=== PATIENT | male | born 1960 | race Caucasian/White ===

== ENCOUNTER 2019-05-20 11:48 | Inpatient (IN) | payer MEDICAID ==
[2019-05-20 13:15] LABS: ABNORMAL IP MESSAGE 1; HEMATOCRIT 21.3 % (42.0-52.0); MEAN CORPUSCULAR HEMOGLOBIN 22.6 pg (29.0-33.0); MEAN CORPUSCULAR HGB CONC 30.5 g/dl (32.0-37.0); MEAN CORPUSCULAR VOLUME 74.2 fl (82.0-101.0); MEAN PLATELET VOLUME 7.9 fl (7.4-10.4); PLATELET COUNT 374 10^3/UL (140-415); POSITIVE DIFF @See below; RED BLOOD COUNT 2.87 10^6/ul (4.70-6.10); RED CELL DISTRIBUTION WIDTH 16.1 % (11.5-14.5)
[2019-05-20] MEDS: ONDANSETRON 4 MG INJ IV (13:16)
[2019-05-20] MEDS: morphine 4 MG/ML VIAL IV (13:16)
[2019-05-20] MEDS: SOD CHLORIDE 0.9% 1,000 ML IV (13:16)
[2019-05-20] MEDS: PANTOPRAZOLE 40 MG INJ IV (13:16)
[2019-05-20 13:21] LABS: ADD MAN DIFF? YES; HEMOGLOBIN 6.5 g/dl (14.0-18.0)
[2019-05-20 13:32] LABS: ALANINE AMINOTRANSFERASE 27 IU/L (13-69); ALBUMIN 2.7 g/dl (3.3-4.9); ALBUMIN/GLOBULIN RATIO 0.36; ALKALINE PHOSPHATASE 125 IU/L (42-121); ANION GAP 5 (5-13); ASPARTATE AMINO TRANSFERASE 31 IU/L (15-46); BILIRUBIN,INDIRECT 0.6 mg/dl (0-1.1); BILIRUBIN,TOTAL 0.6 mg/dl (0.2-1.3); BLOOD UREA NITROGEN 17 mg/dl (7-20); CALCIUM 8.9 mg/dl (8.4-10.2); CARBON DIOXIDE 21 mmol/L (21-31); CHLORIDE 110 mmol/L (97-110); CREATININE 1.15 mg/dl (0.61-1.24); Estimated GFR > 60 mL/min (>60); GLUCOSE 122 mg/dl (70-220); LIPASE 29 U/L (23-300); POTASSIUM 3.7 mmol/L (3.5-5.1); SODIUM 136 mmol/L (135-144); TOTAL PROTEIN 10.1 g/dl (6.1-8.1)
[2019-05-20 13:37] LABS: PROTIME 16.3 Sec (11.9-14.9); PT RATIO 1.3
[2019-05-20 13:38] LABS: PARTIAL THROMBOPLASTIN TIME 32.8 Sec (23.0-35.0)
[2019-05-20] MEDS: SOD CHLORIDE 0.9% 0 ML IV (13:40)
[2019-05-20 13:44] LABS: ANISOCYTOSIS 1+ (0-0); BAND NEUTROPHILS #M 5.7 10^3/ul (0.0-0.6); BAND NEUTROPHILS % (M) 38 % (0-4); BURR CELLS 1+ (0-0); HYPOCHROMASIA 1+ (0-0); LYMPHOCYTES #M 0.4 10^3/ul (0.8-2.9); LYMPHOCYTES % (M) 3 % (15-51); MICROCYTOSIS 1+ (0-0); MONOCYTE #M 0.4 10^3/ul (0.3-0.9); MONOCYTES % (M) 3 % (0-11); PLATELET ESTIMATE NORMAL; POIKILOCYTOSIS 1+ (0-0); POLYCHROMASIA 3+ (0-0); SEG NEUT #M 9.3 10^3/ul (1.6-7.5); SEGMENTED NEUTROPHILS (M) % 56 % (39-77); SMUDGE%M 3 % (0-0); TARGET CELLS 1+ (0-0); TROPONIN-I < 0.012 ng/ml (0.000-0.120)
[2019-05-20] MEDS ORDERED: ACETAMINOPHEN 325 MG TAB PO (15:00)
[2019-05-20] MEDS ORDERED: ONDANSETRON 4 MG INJ IV ×3 (15:00→18:30)
[2019-05-20] MEDS: AMPICILLIN/SULB 3 GM/NS (PMX) 100 ML IVPB (15:01)
[2019-05-20 15:13] LABS: HIV 1&2 ANTIBODY REACTIVE (NEGATIVE)
[2019-05-20] MEDS ORDERED: SOD CHLORIDE 0.9% 1,000 ML IV (15:39)
[2019-05-20] MEDS ORDERED: BUPIVACAINE 0.25% (MPF) 30 ML INJ (15:44)
[2019-05-20] MEDS ORDERED: LIDOCAINE 1% (MPF) 30 ML INJ (15:45)
[2019-05-20] MEDS ORDERED: BUPIVACAINE 0.5%/EPI (SDV) 30 ML INJ (15:45)
[2019-05-20] MEDS ORDERED: VANCOMYCIN IV PER PHARMACY XX (16:00)
[2019-05-20] MEDS ORDERED: NACL 0.9% 3 ML SYG IV (16:00)
[2019-05-20] MEDS ORDERED: MIDAZOLAM 1 MG/ML 2 ML INJ (16:32)
[2019-05-20 16:48] LABS: IMMEDIATE SPIN CROSSMATCH 1 2
[2019-05-20] MEDS ORDERED: ROPIVACAINE 0.5 % 30 ML VIAL (17:28)
[2019-05-20] MEDS ORDERED: ONDANSETRON 4 MG INJ (17:52)
[2019-05-20] MEDS ORDERED: ROCURONIUM 50 MG INJ (17:54)
[2019-05-20] MEDS ORDERED: NEOSTIGMINE 3 MG/3 ML SYRINGE (17:54)
[2019-05-20] MEDS ORDERED: GLYCOPYRROLATE 0.4 MG INJ (17:54)
[2019-05-20] MEDS ORDERED: LIDOCAINE 2% (SDV) 5 ML INJ (17:54)
[2019-05-20] MEDS ORDERED: ETOMIDATE 20 MG INJ (17:54)
[2019-05-20] MEDS ORDERED: morphine 2 MG INJ IV ×2 (18:00→18:30)
[2019-05-20] MEDS ORDERED: METOCLOPRAMIDE 10 MG INJ IV (18:30)
[2019-05-20] MEDS ORDERED: MEPERIDINE 25 MG INJ IV (18:30)
[2019-05-20] MEDS ORDERED: DIPHENHYDRAMINE 50 MG INJ IV (18:30)
[2019-05-20] MEDS ORDERED: KETOROLAC 30 MG INJ IV (18:30)
[2019-05-20] MEDS ORDERED: FENTAnyl 50 MCG/ML VIAL IV (18:30)
[2019-05-20] MEDS ORDERED: SUGAMMADEX SODIUM 200 MG/2 ML VIAL IV (19:23)
[2019-05-20] MEDS: PIPER-TAZO 3.375 GM IV (PMX) 100 ML IVPB (21:38)
[2019-05-20] MEDS: D5W-0.45 NACL + KCL 20 MEQ 1,000 ML IV (21:39)
[2019-05-20] MEDS: morphine 2 MG INJ IV (23:12)
[2019-05-21] MEDS: VANCOMYCIN 1 GM in 250 ML IVPB (01:11)
[2019-05-21] MEDS: D5W-0.45 NACL + KCL 20 MEQ 1,000 ML IV ×3 (03:40→23:40)
[2019-05-21 06:03] LABS: ADD MAN DIFF? NO
[2019-05-21 06:06] LABS: HEMATOCRIT 26.2 % (42.0-52.0); HEMOGLOBIN 8.2 g/dl (14.0-18.0); MEAN CORPUSCULAR HEMOGLOBIN 23.7 pg (29.0-33.0); MEAN CORPUSCULAR HGB CONC 31.3 g/dl (32.0-37.0); MEAN CORPUSCULAR VOLUME 75.7 fl (82.0-101.0); MEAN PLATELET VOLUME 8.6 fl (7.4-10.4); PLATELET COUNT 344 10^3/UL (140-415); POSITIVE DIFF @See below; RED BLOOD COUNT 3.46 10^6/ul (4.70-6.10); RED CELL DISTRIBUTION WIDTH 16.8 % (11.5-14.5)
[2019-05-21 06:06] LABS: WHITE BLOOD COUNT 9.8 10^3/ul (4.8-10.8)
[2019-05-21 06:31] LABS: IRON 16 ug/dl (35-150)
[2019-05-21] MEDS: PANTOPRAZOLE 40 MG INJ IV (06:39)
[2019-05-21 06:40] LABS: % IRON SATURATION 9 % SAT (22-52); TOTAL IRON BINDING CAPACITY 179 ug/dl (241-421)
[2019-05-21] MEDS: PIPER-TAZO 3.375 GM IV (PMX) 100 ML IVPB ×3 (06:43→17:52)
[2019-05-21 06:46] LABS: ALANINE AMINOTRANSFERASE 19 IU/L (13-69); ALBUMIN 2.2 g/dl (3.3-4.9); ALBUMIN/GLOBULIN RATIO 0.36; ALKALINE PHOSPHATASE 108 IU/L (42-121); ANION GAP 6 (5-13); ASPARTATE AMINO TRANSFERASE 34 IU/L (15-46); BILIRUBIN,INDIRECT 0.8 mg/dl (0-1.1); BILIRUBIN,TOTAL 0.8 mg/dl (0.2-1.3); BLOOD UREA NITROGEN 14 mg/dl (7-20); CARBON DIOXIDE 18 mmol/L (21-31); CHLORIDE 113 mmol/L (97-110); CHOL/HDL RATIO 4.7 RATIO; CHOLESTEROL 52 mg/dl (100-200); CREATININE 0.91 mg/dl (0.61-1.24); Estimated GFR > 60 mL/min (>60); GLUCOSE 98 mg/dl (70-220); HDL CHOLESTEROL 11 mg/dl (30-78); LDL CHOLESTEROL,CALCULATED 31 mg/dl; MAGNESIUM 1.7 mg/dl (1.7-2.5); PHOSPHORUS 2.8 mg/dl (2.5-4.9); POTASSIUM 3.5 mmol/L (3.5-5.1); SODIUM 137 mmol/L (135-144); TOTAL PROTEIN 8.3 g/dl (6.1-8.1); TRIGLYCERIDES 52 mg/dl (0-149)
[2019-05-21] MEDS: ENOXAPARIN 40 MG/0.4 ML SYG SC (06:53)
[2019-05-21 07:03] LABS: THYROID STIMULATING HORMONE 0.727 MIU/L (0.465-4.680)
[2019-05-21 07:29] LABS: FERRITIN 68.3 ng/ml (11.1-264.0)
[2019-05-21 07:43] LABS: ANISOCYTOSIS 1+ (0-0); BAND NEUTROPHILS #M 3.1 10^3/ul (0.0-0.6); BAND NEUTROPHILS % (M) 32 % (0-4); BURR CELLS 1+ (0-0); LYMPHOCYTES #M 0.9 10^3/ul (0.8-2.9); LYMPHOCYTES % (M) 10 % (15-51); MONOCYTES % (M) 1 % (0-11); PLATELET ESTIMATE NORMAL; POIKILOCYTOSIS 1+ (0-0); POLYCHROMASIA 1+ (0-0); REACTIVE LYMPHOCYTES #M 0.2 10^3/ul (0.0-0.0); REACTIVE LYMPHOCYTES% (M) 3 % (0-0); SEG NEUT #M 5.6 10^3/ul (1.6-7.5); SEGMENTED NEUTROPHILS (M) % 54 % (39-77); SMUDGE%M 19 % (0-0); TARGET CELLS 1+ (0-0)
[2019-05-21 08:44] LABS: HEMOGLOBIN A1C 5.8 % (0-5.9)
[2019-05-21] MEDS: morphine 2 MG INJ IV ×2 (10:19→17:52)
[2019-05-21 14:42] LABS: LYMPHOCYTE - % CD4 (HELPER) 10 % (30-61); LYMPHOCYTE - %CD8 (SUPPRESSOR) 66 % (12-42); LYMPHOCYTE - ABSOLUTE 1694 cells/uL (850-3900); LYMPHOCYTE - ABSOLUTE CD4 170 cells/uL (490-1740); LYMPHOCYTE - ABSOLUTE CD8 1119 cells/uL (180-1170); LYMPHOCYTE - CD4/CD8 RATIO 0.15 (0.86-5.00)
[2019-05-21] MEDS: VANCOMYCIN 500 MG (PMX) 100 ML IVPB (16:00)
[2019-05-21] MEDS: SOD CHLORIDE 0.9% 1,000 ML IV (20:55)
[2019-05-22] MEDS ORDERED: VANCOMYCIN 750 MG (PMX) 250 ML IVPB
[2019-05-22] MEDS: PIPER-TAZO 3.375 GM IV (PMX) 100 ML IVPB ×5 (00:08→23:31)
[2019-05-22] MEDS: VANCOMYCIN 500 MG (PMX) 100 ML IVPB (02:55)
[2019-05-22] MEDS: D5W-0.45 NACL + KCL 20 MEQ 1,000 ML IV ×3 (06:08→17:06)
[2019-05-22] MEDS: PANTOPRAZOLE 40 MG INJ IV (06:12)
[2019-05-22] MEDS: ENOXAPARIN 40 MG/0.4 ML SYG SC (07:09)
[2019-05-22 09:13] LABS: ADD MAN DIFF? NO
[2019-05-22 09:14] LABS: BASOPHILS % 0.2 % (0.0-2.0); HEMOGLOBIN 8.6 g/dl (14.0-18.0); LYMPHOCYTES # 1.2 10^3/ul (0.8-2.9); LYMPHOCYTES % 12.5 % (15.0-51.0); MEAN CORPUSCULAR HGB CONC 31.9 g/dl (32.0-37.0); MEAN CORPUSCULAR VOLUME 75.4 fl (82.0-101.0); MEAN PLATELET VOLUME 7.7 fl (7.4-10.4); MONOCYTE # 0.5 10^3/ul (0.3-0.9); MONOCYTES % 5.5 % (0.0-11.0); NEUTROPHILS % 80.8 % (39.0-77.0); PLATELET COUNT 336 10^3/UL (140-415); RED BLOOD COUNT 3.58 10^6/ul (4.70-6.10); RED CELL DISTRIBUTION WIDTH 16.9 % (11.5-14.5)
[2019-05-22 09:14] LABS: WHITE BLOOD COUNT 9.9 10^3/ul (4.8-10.8)
[2019-05-22 09:40] LABS: ALANINE AMINOTRANSFERASE 10 IU/L (13-69); ALBUMIN 2.3 g/dl (3.3-4.9); ALBUMIN/GLOBULIN RATIO 0.38; ALKALINE PHOSPHATASE 96 IU/L (42-121); ANION GAP 4 (5-13); ASPARTATE AMINO TRANSFERASE 31 IU/L (15-46); BILIRUBIN,INDIRECT 0.6 mg/dl (0-1.1); BILIRUBIN,TOTAL 1.4 mg/dl (0.2-1.3); BLOOD UREA NITROGEN 11 mg/dl (7-20); CALCIUM 7.9 mg/dl (8.4-10.2); CARBON DIOXIDE 19 mmol/L (21-31); CHLORIDE 113 mmol/L (97-110); CREATININE 0.91 mg/dl (0.61-1.24); Estimated GFR > 60 mL/min (>60); GLUCOSE 124 mg/dl (70-220); SODIUM 136 mmol/L (135-144); TOTAL PROTEIN 8.2 g/dl (6.1-8.1)
[2019-05-22 09:45] LABS: POTASSIUM 2.9 mmol/L (3.5-5.1)
[2019-05-22] MEDS: POTASSIUM CHLORIDE 20 MEQ POWDER FOR ORAL SOLN PO (11:19)
[2019-05-22 15:05] LABS: VANCOMYCIN,TROUGH 5.8 ug/ml (10.0-20.0)
[2019-05-22] MEDS: TRIMETHOPRIM/SULFAMETHOX (DS) TAB PO (17:07)
[2019-05-22] MEDS: DIPHENHYDRAMINE 50 MG INJ IV (18:50)
[2019-05-22 19:06] LABS: HAAIG REFLEX REFLEX FILED
[2019-05-22 19:57] LABS: HEPATITIS B SURFACE ANTIGEN NEGATIVE (NEGATIVE)
[2019-05-22 20:15] LABS: HEPATITIS B CORE ANTIBODY NEGATIVE (NEGATIVE)
[2019-05-22 20:17] LABS: HEPATITIS C VIRAL ANTIBODY REACTIVE (NEGATIVE)
[2019-05-23] MEDS: HYDROCODONE/APAP (5/325) TAB PO ×3 (00:13→21:18)
[2019-05-23 06:12] LABS: ADD MAN DIFF? NO
[2019-05-23 06:19] LABS: BASOPHILS % 0.2 % (0.0-2.0); HEMATOCRIT 27.4 % (42.0-52.0); HEMOGLOBIN 8.8 g/dl (14.0-18.0); LYMPHOCYTES # 2.6 10^3/ul (0.8-2.9); LYMPHOCYTES % 29.1 % (15.0-51.0); MEAN CORPUSCULAR HEMOGLOBIN 23.8 pg (29.0-33.0); MEAN CORPUSCULAR HGB CONC 32.1 g/dl (32.0-37.0); MEAN CORPUSCULAR VOLUME 74.3 fl (82.0-101.0); MONOCYTE # 0.7 10^3/ul (0.3-0.9); MONOCYTES % 7.4 % (0.0-11.0); NEUTROPHIL # 5.6 10^3/ul (1.6-7.5); NEUTROPHILS % 62.3 % (39.0-77.0); PLATELET COUNT 380 10^3/UL (140-415); RED BLOOD COUNT 3.69 10^6/ul (4.70-6.10); RED CELL DISTRIBUTION WIDTH 16.9 % (11.5-14.5)
[2019-05-23 06:19] LABS: WHITE BLOOD COUNT 8.9 10^3/ul (4.8-10.8)
[2019-05-23] MEDS: D5W-0.45 NACL + KCL 20 MEQ 1,000 ML IV (06:37)
[2019-05-23] MEDS: PANTOPRAZOLE 40 MG INJ IV (06:37)
[2019-05-23] MEDS: PIPER-TAZO 3.375 GM IV (PMX) 100 ML IVPB ×2 (06:42→11:38)
[2019-05-23] MEDS: ENOXAPARIN 40 MG/0.4 ML SYG SC (06:51)
[2019-05-23 06:59] LABS: ANION GAP 4 (5-13); BLOOD UREA NITROGEN 9 mg/dl (7-20); CALCIUM 7.9 mg/dl (8.4-10.2); CARBON DIOXIDE 18 mmol/L (21-31); CHLORIDE 109 mmol/L (97-110); CREATININE 0.78 mg/dl (0.61-1.24); Estimated GFR > 60 mL/min (>60); GLUCOSE 101 mg/dl (70-220); MAGNESIUM 1.8 mg/dl (1.7-2.5); PHOSPHORUS 2.9 mg/dl (2.5-4.9); POTASSIUM 3.7 mmol/L (3.5-5.1); SODIUM 131 mmol/L (135-144)
[2019-05-23] MEDS: CEFTRIAXONE 1 GM/50 ML (PMX) 50 ML IVPB (11:52)
[2019-05-24] MEDS: HYDROCODONE/APAP (5/325) TAB PO ×4 (03:58→21:59)
[2019-05-24 05:40] LABS: ADD MAN DIFF? NO
[2019-05-24 05:43] LABS: WHITE BLOOD COUNT 6.6 10^3/ul (4.8-10.8)
[2019-05-24 05:43] LABS: BASOPHILS % 0.2 % (0.0-2.0); HEMATOCRIT 26.2 % (42.0-52.0); HEMOGLOBIN 8.3 g/dl (14.0-18.0); LYMPHOCYTES # 1.3 10^3/ul (0.8-2.9); LYMPHOCYTES % 20.2 % (15.0-51.0); MEAN CORPUSCULAR HEMOGLOBIN 23.2 pg (29.0-33.0); MEAN CORPUSCULAR HGB CONC 31.7 g/dl (32.0-37.0); MEAN CORPUSCULAR VOLUME 73.2 fl (82.0-101.0); MEAN PLATELET VOLUME 8.1 fl (7.4-10.4); MONOCYTE # 0.5 10^3/ul (0.3-0.9); NEUTROPHIL # 4.7 10^3/ul (1.6-7.5); NEUTROPHILS % 71.2 % (39.0-77.0); PLATELET COUNT 337 10^3/UL (140-415); RED BLOOD COUNT 3.58 10^6/ul (4.70-6.10)
[2019-05-24] MEDS: PANTOPRAZOLE 40 MG INJ IV (06:02)
[2019-05-24] MEDS: ENOXAPARIN 40 MG/0.4 ML SYG SC (06:09)
[2019-05-24 07:11] LABS: ANION GAP 3 (5-13); BLOOD UREA NITROGEN 9 mg/dl (7-20); CALCIUM 7.7 mg/dl (8.4-10.2); CARBON DIOXIDE 19 mmol/L (21-31); CHLORIDE 106 mmol/L (97-110); CREATININE 0.69 mg/dl (0.61-1.24); Estimated GFR > 60 mL/min (>60); GLUCOSE 93 mg/dl (70-220); MAGNESIUM 1.7 mg/dl (1.7-2.5); PHOSPHORUS 3.4 mg/dl (2.5-4.9); POTASSIUM 3.4 mmol/L (3.5-5.1); SODIUM 128 mmol/L (135-144)
[2019-05-24] MEDS: POTASSIUM CHLORIDE (SR) 20 MEQ TAB PO (12:00)
[2019-05-24] MEDS: CEFTRIAXONE 1 GM/50 ML (PMX) 50 ML IVPB (12:00)
[2019-05-24] MEDS: metroNIDAZOLE 500 MG TAB PO ×2 (12:23→21:58)
[2019-05-24] MEDS: SOD FERRIC GLUC COMPLX 125 MG in SOD CHLORIDE 0.9% 100 ML IVPB (13:42)
[2019-05-24] MEDS: ATOVAQUONE 750 MG/5 ML CUP PO ×2 (14:47→21:58)
[2019-05-24] MEDS: IOHEXOL 14.3 MG(I)/ML (ADULT) BTL PO (18:29)
[2019-05-24] MEDS: IOHEXOL 300MG/ML 150 ML BTL (21:01)
[2019-05-24] MEDS: SOD CHLORIDE 0.9% 100 ML (21:01)
[2019-05-25] MEDS: HYDROCODONE/APAP (5/325) TAB PO (02:26)
[2019-05-25] MEDS: ONDANSETRON 4 MG INJ IV ×2 (02:40→10:31)
[2019-05-25 03:24] LABS: CMV DNA QL SOURCE SERUM
[2019-05-25] MEDS: metroNIDAZOLE 500 MG TAB PO (05:05)
[2019-05-25] MEDS: PANTOPRAZOLE 40 MG INJ IV (05:13)
[2019-05-25] MEDS: D5W-0.45 NACL + KCL 20 MEQ 1,000 ML IV ×2 (05:13→14:05)
[2019-05-25 06:06] LABS: ADD MAN DIFF? NO
[2019-05-25 06:11] LABS: BASOPHILS % 0.1 % (0.0-2.0); HEMATOCRIT 26.1 % (42.0-52.0); HEMOGLOBIN 8.4 g/dl (14.0-18.0); LYMPHOCYTES % 11.5 % (15.0-51.0); MEAN CORPUSCULAR HEMOGLOBIN 23.3 pg (29.0-33.0); MEAN CORPUSCULAR HGB CONC 32.2 g/dl (32.0-37.0); MEAN CORPUSCULAR VOLUME 72.3 fl (82.0-101.0); MEAN PLATELET VOLUME 8.4 fl (7.4-10.4); MONOCYTE # 0.4 10^3/ul (0.3-0.9); MONOCYTES % 4.5 % (0.0-11.0); NEUTROPHIL # 7.3 10^3/ul (1.6-7.5); NEUTROPHILS % 82.9 % (39.0-77.0); PLATELET COUNT 325 10^3/UL (140-415); RED BLOOD COUNT 3.61 10^6/ul (4.70-6.10)
[2019-05-25 06:11] LABS: WHITE BLOOD COUNT 8.8 10^3/ul (4.8-10.8)
[2019-05-25 06:37] LABS: ANION GAP 5 (5-13); BLOOD UREA NITROGEN 8 mg/dl (7-20); CALCIUM 7.8 mg/dl (8.4-10.2); CARBON DIOXIDE 19 mmol/L (21-31); CHLORIDE 102 mmol/L (97-110); CREATININE 0.58 mg/dl (0.61-1.24); Estimated GFR > 60 mL/min (>60); GLUCOSE 86 mg/dl (70-220); MAGNESIUM 1.8 mg/dl (1.7-2.5); PHOSPHORUS 3.6 mg/dl (2.5-4.9); POTASSIUM 3.7 mmol/L (3.5-5.1); SODIUM 126 mmol/L (135-144)
[2019-05-25] MEDS: ATOVAQUONE 750 MG/5 ML CUP PO (09:00)
[2019-05-25] MEDS: morphine 2 MG INJ IV ×2 (10:31→20:41)
[2019-05-25] MEDS: PIPER-TAZO 3.375 GM IV (PMX) 100 ML IVPB ×2 (14:05→21:27)
[2019-05-25] MEDS: SOD FERRIC GLUC COMPLX 125 MG in SOD CHLORIDE 0.9% 100 ML IVPB (14:05)
[2019-05-25] MEDS: NYSTATIN SUSP 5 ML CUP PO ×3 (14:09→20:40)
[2019-05-25 14:24] LABS: HEMATOCRIT 24.9 % (42.0-52.0); HEMOGLOBIN 8.3 g/dl (14.0-18.0)
[2019-05-25 16:21] LABS: RAPID PLASMA REAGIN NONREACTIVE (NR)
[2019-05-25] MEDS: SOD CHLORIDE 0.9% IVPB ×2 (18:32→22:04)
[2019-05-25] MEDS: ACYCLOVIR IVPB ×2 (18:32→22:04)
[2019-05-26] MEDS: D5W-0.45 NACL + KCL 20 MEQ 1,000 ML IV ×4 (00:30→15:33)
[2019-05-26] MEDS: PIPER-TAZO 3.375 GM IV (PMX) 100 ML IVPB ×3 (05:08→21:05)
[2019-05-26] MEDS: PANTOPRAZOLE 40 MG INJ IV (05:08)
[2019-05-26] MEDS: ACYCLOVIR IVPB ×3 (05:45→21:57)
[2019-05-26] MEDS: SOD CHLORIDE 0.9% IVPB ×3 (05:45→21:57)
[2019-05-26 06:04] LABS: ADD MAN DIFF? NO
[2019-05-26 06:07] LABS: WHITE BLOOD COUNT 7.1 10^3/ul (4.8-10.8)
[2019-05-26 06:07] LABS: BASOPHILS % 0.1 % (0.0-2.0); HEMATOCRIT 23.3 % (42.0-52.0); HEMOGLOBIN 7.7 g/dl (14.0-18.0); LYMPHOCYTES # 1.2 10^3/ul (0.8-2.9); LYMPHOCYTES % 16.9 % (15.0-51.0); MEAN CORPUSCULAR HEMOGLOBIN 23.7 pg (29.0-33.0); MEAN CORPUSCULAR VOLUME 71.7 fl (82.0-101.0); MEAN PLATELET VOLUME 8.4 fl (7.4-10.4); MONOCYTE # 0.3 10^3/ul (0.3-0.9); MONOCYTES % 4.6 % (0.0-11.0); NEUTROPHIL # 5.5 10^3/ul (1.6-7.5); NEUTROPHILS % 77.3 % (39.0-77.0); PLATELET COUNT 305 10^3/UL (140-415); RED BLOOD COUNT 3.25 10^6/ul (4.70-6.10); RED CELL DISTRIBUTION WIDTH 17.4 % (11.5-14.5)
[2019-05-26 06:36] LABS: ANION GAP 3 (5-13); BLOOD UREA NITROGEN 5 mg/dl (7-20); CALCIUM 7.4 mg/dl (8.4-10.2); CARBON DIOXIDE 20 mmol/L (21-31); CHLORIDE 106 mmol/L (97-110); CREATININE 0.72 mg/dl (0.61-1.24); Estimated GFR > 60 mL/min (>60); GLUCOSE 91 mg/dl (70-220); MAGNESIUM 1.9 mg/dl (1.7-2.5); PHOSPHORUS 3.5 mg/dl (2.5-4.9); POTASSIUM 3.4 mmol/L (3.5-5.1); SODIUM 129 mmol/L (135-144)
[2019-05-26 07:45] LABS: OCCULT BLOOD STOOL POSITIVE (NEGATIVE)
[2019-05-26] MEDS: NYSTATIN SUSP 5 ML CUP PO ×4 (09:01→20:11)
[2019-05-26 10:48] LABS: HEMATOCRIT 26.2 % (42.0-52.0); HEMOGLOBIN 8.5 g/dl (14.0-18.0)
[2019-05-26] MEDS: SOD FERRIC GLUC COMPLX 125 MG in SOD CHLORIDE 0.9% 100 ML IVPB (13:05)
[2019-05-26] MEDS: KETOROLAC 15 MG INJ IV (21:06)
[2019-05-27 05:15] LABS: ADD MAN DIFF? NO
[2019-05-27 05:18] LABS: WHITE BLOOD COUNT 5.8 10^3/ul (4.8-10.8)
[2019-05-27 05:18] LABS: BASOPHILS % 0.2 % (0.0-2.0); HEMATOCRIT 22.9 % (42.0-52.0); HEMOGLOBIN 7.5 g/dl (14.0-18.0); LYMPHOCYTES # 1.2 10^3/ul (0.8-2.9); LYMPHOCYTES % 20.6 % (15.0-51.0); MEAN CORPUSCULAR HEMOGLOBIN 23.6 pg (29.0-33.0); MEAN CORPUSCULAR HGB CONC 32.8 g/dl (32.0-37.0); MEAN PLATELET VOLUME 8.3 fl (7.4-10.4); MONOCYTE # 0.3 10^3/ul (0.3-0.9); MONOCYTES % 5.4 % (0.0-11.0); NEUTROPHIL # 4.2 10^3/ul (1.6-7.5); NEUTROPHILS % 72.8 % (39.0-77.0); PLATELET COUNT 312 10^3/UL (140-415); RED BLOOD COUNT 3.18 10^6/ul (4.70-6.10); RED CELL DISTRIBUTION WIDTH 17.9 % (11.5-14.5)
[2019-05-27] MEDS: PIPER-TAZO 3.375 GM IV (PMX) 100 ML IVPB ×3 (05:33→21:24)
[2019-05-27] MEDS: PANTOPRAZOLE 40 MG INJ IV (05:33)
[2019-05-27] MEDS: SOD CHLORIDE 0.9% IVPB ×3 (05:34→22:12)
[2019-05-27] MEDS: ACYCLOVIR IVPB ×3 (05:34→22:12)
[2019-05-27] MEDS: D5W-0.45 NACL + KCL 20 MEQ 1,000 ML IV ×2 (05:34→16:30)
[2019-05-27 06:23] LABS: ANION GAP 3 (5-13); BLOOD UREA NITROGEN 6 mg/dl (7-20); CALCIUM 7.3 mg/dl (8.4-10.2); CARBON DIOXIDE 20 mmol/L (21-31); CHLORIDE 109 mmol/L (97-110); CREATININE 0.72 mg/dl (0.61-1.24); Estimated GFR > 60 mL/min (>60); GLUCOSE 87 mg/dl (70-220); PHOSPHORUS 3.3 mg/dl (2.5-4.9); POTASSIUM 3.4 mmol/L (3.5-5.1); SODIUM 132 mmol/L (135-144)
[2019-05-27] MEDS: NYSTATIN SUSP 5 ML CUP PO ×4 (08:54→21:24)
[2019-05-27 09:41] LABS: NIL 0.03 IU/mL; QUANTIFERON(R)-TB GOLD NEGATIVE (NEGATIVE); TB-NIL <0.00 IU/mL; TB2-NIL <0.00 IU/mL
[2019-05-27 11:24] LABS: HEMOGLOBIN 7.7 g/dl (14.0-18.0)
[2019-05-27] MEDS: POTASSIUM CHLORIDE (SR) 20 MEQ TAB PO (15:24)
[2019-05-27] MEDS: ACETAMINOPHEN 325 MG TAB PO (16:47)
[2019-05-27 17:46] LABS: TOXOPLASMA ANTIBODY <7.20 IU/mL
[2019-05-28] MEDS: D5W-0.45 NACL + KCL 20 MEQ 1,000 ML IV (02:36)
[2019-05-28] MEDS: PANTOPRAZOLE 40 MG INJ IV (05:58)
[2019-05-28] MEDS: PIPER-TAZO 3.375 GM IV (PMX) 100 ML IVPB ×3 (05:58→21:05)
[2019-05-28 06:07] LABS: ADD MAN DIFF? NO
[2019-05-28 06:17] LABS: BASOPHILS % 0.2 % (0.0-2.0); HEMATOCRIT 25.6 % (42.0-52.0); HEMOGLOBIN 8.1 g/dl (14.0-18.0); LYMPHOCYTES % 32.4 % (15.0-51.0); MEAN CORPUSCULAR HEMOGLOBIN 23.4 pg (29.0-33.0); MEAN CORPUSCULAR HGB CONC 31.6 g/dl (32.0-37.0); MEAN PLATELET VOLUME 8.3 fl (7.4-10.4); MONOCYTE # 0.4 10^3/ul (0.3-0.9); MONOCYTES % 5.8 % (0.0-11.0); NEUTROPHIL # 3.8 10^3/ul (1.6-7.5); NEUTROPHILS % 60.8 % (39.0-77.0); PLATELET COUNT 399 10^3/UL (140-415); RED BLOOD COUNT 3.46 10^6/ul (4.70-6.10); RED CELL DISTRIBUTION WIDTH 18.1 % (11.5-14.5)
[2019-05-28 06:17] LABS: WHITE BLOOD COUNT 6.2 10^3/ul (4.8-10.8)
[2019-05-28] MEDS: SOD CHLORIDE 0.9% IVPB ×3 (06:47→22:04)
[2019-05-28] MEDS: ACYCLOVIR IVPB ×3 (06:47→22:04)
[2019-05-28 06:53] LABS: ANION GAP 4 (5-13); BLOOD UREA NITROGEN 7 mg/dl (7-20); CALCIUM 7.7 mg/dl (8.4-10.2); CARBON DIOXIDE 18 mmol/L (21-31); CHLORIDE 108 mmol/L (97-110); CREATININE 0.71 mg/dl (0.61-1.24); Estimated GFR > 60 mL/min (>60); GLUCOSE 96 mg/dl (70-220); PHOSPHORUS 2.8 mg/dl (2.5-4.9); POTASSIUM 3.8 mmol/L (3.5-5.1); SODIUM 130 mmol/L (135-144)
[2019-05-28] MEDS: NYSTATIN SUSP 5 ML CUP PO ×4 (10:31→21:05)
[2019-05-28] MEDS: ATOVAQUONE 750 MG/5 ML CUP PO (21:05)
[2019-05-29] MEDS: PANTOPRAZOLE 40 MG INJ IV (05:17)
[2019-05-29] MEDS: PIPER-TAZO 3.375 GM IV (PMX) 100 ML IVPB ×3 (05:17→22:45)
[2019-05-29 05:53] LABS: ADD MAN DIFF? NO
[2019-05-29 05:56] LABS: WHITE BLOOD COUNT 5.3 10^3/ul (4.8-10.8)
[2019-05-29 05:57] LABS: BASOPHILS % 0.2 % (0.0-2.0); HEMATOCRIT 23.4 % (42.0-52.0); HEMOGLOBIN 7.4 g/dl (14.0-18.0); LYMPHOCYTES # 1.3 10^3/ul (0.8-2.9); LYMPHOCYTES % 25.5 % (15.0-51.0); MEAN CORPUSCULAR HEMOGLOBIN 23.3 pg (29.0-33.0); MEAN CORPUSCULAR HGB CONC 31.6 g/dl (32.0-37.0); MEAN CORPUSCULAR VOLUME 73.6 fl (82.0-101.0); MEAN PLATELET VOLUME 8.3 fl (7.4-10.4); MONOCYTE # 0.5 10^3/ul (0.3-0.9); MONOCYTES % 8.6 % (0.0-11.0); NEUTROPHIL # 3.4 10^3/ul (1.6-7.5); NEUTROPHILS % 64.9 % (39.0-77.0); PLATELET COUNT 368 10^3/UL (140-415); RED BLOOD COUNT 3.18 10^6/ul (4.70-6.10); RED CELL DISTRIBUTION WIDTH 18.6 % (11.5-14.5)
[2019-05-29] MEDS: SOD CHLORIDE 0.9% IVPB ×3 (06:13→21:43)
[2019-05-29] MEDS: ACYCLOVIR IVPB ×3 (06:13→21:43)
[2019-05-29 06:36] LABS: PHOSPHORUS 3.2 mg/dl (2.5-4.9)
[2019-05-29 06:36] LABS: MAGNESIUM 1.8 mg/dl (1.7-2.5)
[2019-05-29 06:58] LABS: ANION GAP 4 (5-13); BLOOD UREA NITROGEN 8 mg/dl (7-20); CALCIUM 7.8 mg/dl (8.4-10.2); CARBON DIOXIDE 20 mmol/L (21-31); CHLORIDE 107 mmol/L (97-110); CREATININE 0.73 mg/dl (0.61-1.24); Estimated GFR > 60 mL/min (>60); GLUCOSE 106 mg/dl (70-220); POTASSIUM 3.4 mmol/L (3.5-5.1); SODIUM 131 mmol/L (135-144)
[2019-05-29] MEDS: ATOVAQUONE 750 MG/5 ML CUP PO ×2 (08:57→22:44)
[2019-05-29] MEDS: NYSTATIN SUSP 5 ML CUP PO ×4 (08:58→21:42)
[2019-05-29 12:15] LABS: HEMATOCRIT 25.1 % (42.0-52.0)
[2019-05-30 05:26] LABS: ADD MAN DIFF? NO
[2019-05-30 05:27] LABS: WHITE BLOOD COUNT 4.9 10^3/ul (4.8-10.8)
[2019-05-30 05:27] LABS: HEMOGLOBIN 7.7 g/dl (14.0-18.0); RED BLOOD COUNT 3.25 10^6/ul (4.70-6.10)
[2019-05-30 05:28] LABS: BASOPHILS % 0.2 % (0.0-2.0); HEMATOCRIT 24.1 % (42.0-52.0); LYMPHOCYTES # 1.6 10^3/ul (0.8-2.9); LYMPHOCYTES % 32.3 % (15.0-51.0); MEAN CORPUSCULAR HEMOGLOBIN 23.7 pg (29.0-33.0); MEAN CORPUSCULAR VOLUME 74.2 fl (82.0-101.0); MONOCYTE # 0.4 10^3/ul (0.3-0.9); MONOCYTES % 8.8 % (0.0-11.0); NEUTROPHIL # 2.8 10^3/ul (1.6-7.5); NEUTROPHILS % 57.5 % (39.0-77.0); PLATELET COUNT 410 10^3/UL (140-415); RED CELL DISTRIBUTION WIDTH 18.8 % (11.5-14.5)
[2019-05-30] MEDS: PIPER-TAZO 3.375 GM IV (PMX) 100 ML IVPB ×3 (05:30→21:38)
[2019-05-30] MEDS: PANTOPRAZOLE 40 MG INJ IV (05:30)
[2019-05-30 05:57] LABS: ANION GAP 4 (5-13); BLOOD UREA NITROGEN 8 mg/dl (7-20); CALCIUM 7.9 mg/dl (8.4-10.2); CARBON DIOXIDE 21 mmol/L (21-31); CHLORIDE 108 mmol/L (97-110); CREATININE 0.71 mg/dl (0.61-1.24); Estimated GFR > 60 mL/min (>60); GLUCOSE 97 mg/dl (70-220); POTASSIUM 3.3 mmol/L (3.5-5.1); SODIUM 133 mmol/L (135-144)
[2019-05-30] MEDS: SOD CHLORIDE 0.9% IVPB ×3 (06:45→21:38)
[2019-05-30] MEDS: ACYCLOVIR IVPB ×3 (06:45→21:38)
[2019-05-30] MEDS: NYSTATIN SUSP 5 ML CUP PO ×4 (09:26→21:38)
[2019-05-30] MEDS: ATOVAQUONE 750 MG/5 ML CUP PO ×2 (09:26→21:38)
[2019-05-30] MEDS: POTASSIUM CHLORIDE (SR) 20 MEQ TAB PO (12:51)
[2019-05-30] MEDS: SOD CHLORIDE 0.9% 250 ML IV* (12:51)
[2019-05-30 15:46] LABS: IMMEDIATE SPIN CROSSMATCH 1 1
[2019-05-31] MEDS: PANTOPRAZOLE 40 MG INJ IV (05:36)
[2019-05-31] MEDS: PIPER-TAZO 3.375 GM IV (PMX) 100 ML IVPB ×3 (05:36→22:29)
[2019-05-31 05:54] LABS: ADD MAN DIFF? NO
[2019-05-31 06:07] LABS: BASOPHILS % 0.3 % (0.0-2.0); HEMATOCRIT 29.9 % (42.0-52.0); HEMOGLOBIN 9.7 g/dl (14.0-18.0); LYMPHOCYTES # 3.4 10^3/ul (0.8-2.9); LYMPHOCYTES % 43.8 % (15.0-51.0); MEAN CORPUSCULAR HEMOGLOBIN 24.6 pg (29.0-33.0); MEAN CORPUSCULAR HGB CONC 32.4 g/dl (32.0-37.0); MEAN CORPUSCULAR VOLUME 75.7 fl (82.0-101.0); MONOCYTE # 0.6 10^3/ul (0.3-0.9); MONOCYTES % 8.2 % (0.0-11.0); NEUTROPHIL # 3.6 10^3/ul (1.6-7.5); NEUTROPHILS % 46.7 % (39.0-77.0); PLATELET COUNT 479 10^3/UL (140-415); RED BLOOD COUNT 3.95 10^6/ul (4.70-6.10)
[2019-05-31 06:07] LABS: WHITE BLOOD COUNT 7.7 10^3/ul (4.8-10.8)
[2019-05-31 06:28] LABS: PHOSPHORUS 3.2 mg/dl (2.5-4.9)
[2019-05-31 06:28] LABS: MAGNESIUM 1.8 mg/dl (1.7-2.5)
[2019-05-31 06:40] LABS: ANION GAP 5 (5-13); BLOOD UREA NITROGEN 9 mg/dl (7-20); CALCIUM 8.2 mg/dl (8.4-10.2); CARBON DIOXIDE 20 mmol/L (21-31); CHLORIDE 107 mmol/L (97-110); CREATININE 0.75 mg/dl (0.61-1.24); Estimated GFR > 60 mL/min (>60); GLUCOSE 92 mg/dl (70-220); POTASSIUM 3.6 mmol/L (3.5-5.1); SODIUM 132 mmol/L (135-144)
[2019-05-31] MEDS: SOD CHLORIDE 0.9% IVPB ×2 (06:43→14:07)
[2019-05-31] MEDS: ACYCLOVIR IVPB ×2 (06:43→14:07)
[2019-05-31] MEDS: ATOVAQUONE 750 MG/5 ML CUP PO (08:30)
[2019-05-31] MEDS: NYSTATIN SUSP 5 ML CUP PO ×4 (08:30→22:26)
[2019-05-31] MEDS: valACYclovir 500 MG TAB PO (22:26)
[2019-05-31] MEDS: SOD CHLORIDE 0.9% 100 ML (22:30)
[2019-05-31] MEDS: IOHEXOL 300MG/ML 150 ML BTL (22:30)
[2019-06-01] MEDS: ATOVAQUONE 750 MG/5 ML CUP PO ×3 (00:02→21:08)
[2019-06-01 05:52] LABS: ADD MAN DIFF? NO
[2019-06-01 05:53] LABS: BASOPHILS % 0.5 % (0.0-2.0); HEMATOCRIT 27.1 % (42.0-52.0); HEMOGLOBIN 8.8 g/dl (14.0-18.0); MEAN CORPUSCULAR HEMOGLOBIN 24.7 pg (29.0-33.0); MEAN CORPUSCULAR HGB CONC 32.5 g/dl (32.0-37.0); MEAN CORPUSCULAR VOLUME 76.1 fl (82.0-101.0); MEAN PLATELET VOLUME 8.2 fl (7.4-10.4); MONOCYTE # 0.5 10^3/ul (0.3-0.9); MONOCYTES % 12.8 % (0.0-11.0); NEUTROPHIL # 1.4 10^3/ul (1.6-7.5); NEUTROPHILS % 35.7 % (39.0-77.0); PLATELET COUNT 445 10^3/UL (140-415); RED BLOOD COUNT 3.56 10^6/ul (4.70-6.10); RED CELL DISTRIBUTION WIDTH 20.3 % (11.5-14.5)
[2019-06-01 05:53] LABS: WHITE BLOOD COUNT 3.9 10^3/ul (4.8-10.8)
[2019-06-01] MEDS: PANTOPRAZOLE 40 MG INJ IV (06:14)
[2019-06-01] MEDS: PIPER-TAZO 3.375 GM IV (PMX) 100 ML IVPB ×3 (06:14→21:08)
[2019-06-01] MEDS: ACETAMINOPHEN 325 MG TAB PO (06:21)
[2019-06-01 06:30] LABS: ANION GAP 4 (5-13); BLOOD UREA NITROGEN 11 mg/dl (7-20); CALCIUM 8.2 mg/dl (8.4-10.2); CARBON DIOXIDE 21 mmol/L (21-31); CHLORIDE 108 mmol/L (97-110); CREATININE 0.76 mg/dl (0.61-1.24); Estimated GFR > 60 mL/min (>60); GLUCOSE 95 mg/dl (70-220); POTASSIUM 3.3 mmol/L (3.5-5.1); SODIUM 133 mmol/L (135-144)
[2019-06-01] MEDS: NYSTATIN SUSP 5 ML CUP PO ×4 (09:18→21:08)
[2019-06-01] MEDS: valACYclovir 500 MG TAB PO ×2 (09:18→21:08)
[2019-06-02] MEDS: PANTOPRAZOLE 40 MG INJ IV (05:59)
[2019-06-02] MEDS: PIPER-TAZO 3.375 GM IV (PMX) 100 ML IVPB ×2 (05:59→13:10)
[2019-06-02] MEDS: ATOVAQUONE 750 MG/5 ML CUP PO (08:47)
[2019-06-02] MEDS: valACYclovir 500 MG TAB PO (08:47)
[2019-06-02] MEDS: NYSTATIN SUSP 5 ML CUP PO ×3 (08:47→18:21)
[2019-06-02 11:08] LABS: ADD MAN DIFF? NO
[2019-06-02 11:10] LABS: BASOPHILS % 0.5 % (0.0-2.0); HEMATOCRIT 27.5 % (42.0-52.0); HEMOGLOBIN 8.7 g/dl (14.0-18.0); LYMPHOCYTES # 1.5 10^3/ul (0.8-2.9); LYMPHOCYTES % 36.4 % (15.0-51.0); MEAN CORPUSCULAR HEMOGLOBIN 24.3 pg (29.0-33.0); MEAN CORPUSCULAR HGB CONC 31.6 g/dl (32.0-37.0); MEAN CORPUSCULAR VOLUME 76.8 fl (82.0-101.0); MONOCYTE # 0.6 10^3/ul (0.3-0.9); MONOCYTES % 14.7 % (0.0-11.0); NEUTROPHILS % 47.7 % (39.0-77.0); PLATELET COUNT 450 10^3/UL (140-415); RED BLOOD COUNT 3.58 10^6/ul (4.70-6.10); RED CELL DISTRIBUTION WIDTH 21.2 % (11.5-14.5)
[2019-06-02 11:10] LABS: WHITE BLOOD COUNT 4.2 10^3/ul (4.8-10.8)
== END 2019-06-02 20:08 | disposition home or self-care (01) | DRG 969 ==
LOC: E/R 11:48 → 6WM 14:42
PROC: 0DQN4ZZ Repair Sigmoid Colon, Percutaneous Endoscopic Approach (ICD-10-PCS; principal; 2019-05-20 16:16)
PROC: 30233N1 Transfusion of Nonautologous Red Blood Cells into Peripheral Vein, Percutaneous Approach (ICD-10-PCS; 2019-05-20 16:21)
DX: A41.9 Sepsis, unspecified organism (principal); K63.1 Perforation of intestine (nontraumatic); B20 Human immunodeficiency virus [HIV] disease; E44.0 Moderate protein-calorie malnutrition; K62.5 Hemorrhage of anus and rectum; K56.7 Ileus, unspecified; D50.0 Iron deficiency anemia secondary to blood loss (chronic); Z68.20 Body mass index [BMI] 20.0-20.9, adult; K66.8 Other specified disorders of peritoneum; D64.9 Anemia, unspecified; B96.20 Unspecified Escherichia coli [E. coli] as the cause of diseases classified elsewhere; B95.4 Other streptococcus as the cause of diseases classified elsewhere; R21 Rash and other nonspecific skin eruption; H53.8 Other visual disturbances; B37.9 Candidiasis, unspecified; B00.1 Herpesviral vesicular dermatitis; R33.9 Retention of urine, unspecified
CPT/HCPCS: 36430; 71045; 74018; 74019; 74176; 74177; 80048; 80053; 80061; 80202; 82270; 82728; 83036; 83540; 83690; 83735; 84100; 84443; 84484; 85014; 85018; 85025; 85610; 85730; 86360; 86480; 86592; 86701; 86703; 86704; 86709; 86777; 86803; 86850; 86900; 86901; 86920; 87040-91; 87045; 87070; 87075; 87086; 87102; 87116; 87177; 87340; 87496; 87536; 93005; 96374; 96375; 97110; 97116; 97162; 97530; 99285-25